=== PATIENT | male | born 1940 | race Caucasian/White ===

== ENCOUNTER → 2017-01-01 | Outpatient (CLI) | payer MEDICARE ==
[2017-01-01 08:59] LABS: MEAN CORPUSCULAR HEMOGLOBIN 30.8 pg (27.0-33.0); MEAN CORPUSCULAR HGB CONC 33.2 g/dl (32.0-36.5); MEAN CORPUSCULAR VOLUME 92.8 fl (80.0-96.0); RED CELL DISTRIBUTION WIDTH 13.6 % (11.5-14.5); WHITE BLOOD COUNT 6.9 K/mm3 (4.0-10.0)
[2017-01-01 09:25] LABS: ALBUMIN 3.4 GM/DL (3.2-5.2); ALBUMIN/GLOBULIN RATIO 1.26 (1.00-1.93); ALKALINE PHOSPHATASE 63 U/L (45-117); ALT/SGPT 23 U/L (12-78); ANION GAP 7 MEQ/L (8-16); AST/SGOT 13 U/L (15-37); BILIRUBIN,TOTAL 1.1 MG/DL (0.2-1.0); BLOOD UREA NITROGEN 16 MG/DL (7-18); CALCIUM LEVEL 8.7 MG/DL (8.8-10.2); CARBON DIOXIDE LEVEL 30 MEQ/L (21-32); CHLORIDE LEVEL 103 MEQ/L (98-107); CREATININE FOR GFR 1.06 MG/DL (0.70-1.30); GLOMERULAR FILTRATION RATE > 60.0 (>42); GLUCOSE, FASTING 233 MG/DL (83-110); POTASSIUM SERUM 4.3 MEQ/L (3.5-5.1); SODIUM LEVEL 140 MEQ/L (136-145); TOTAL PROTEIN 6.1 GM/DL (6.4-8.2)
== END ==
LOC: M LAB 07:53
PROVIDERS: ATTEND Internal Medicine Rheumatology
DX: M35.3 Polymyalgia rheumatica (principal); Z51.81 Encounter for therapeutic drug level monitoring; Z79.899 Other long term (current) drug therapy; I25.10 Atherosclerotic heart disease of native coronary artery without angina pectoris; E78.2 Mixed hyperlipidemia; I10 Essential (primary) hypertension

== ENCOUNTER → 2017-01-01 | Outpatient (CLI) | payer MEDICARE | LOC: M LAB 07:47 | PROVIDERS: ATTEND Nurse Practitioner Adult Health | DX: I25.10 Atherosclerotic heart disease of native coronary artery without angina pectoris (principal); E78.2 Mixed hyperlipidemia; I10 Essential (primary) hypertension ==

== ENCOUNTER 2019-06-15 20:45 | Emergency (ER) | payer MEDICARE ==
[~2019-06-15] VITALS: Ht 177.8 cm; Wt 89.1 kg
[2019-06-15] MEDS ORDERED: AMBI10TA PO (21:00)
[2019-06-15] MEDS ORDERED: LANTINJ4 SC (21:04)
[2019-06-15] MEDS ORDERED: ANOR1AER PO (21:04)
[2019-06-15] MEDS ORDERED: ASPI81TA85 PO (21:04)
[2019-06-15] MEDS ORDERED: AMLO10TA5 PO (21:04)
[2019-06-15] MEDS ORDERED: PANT40TA3 PO (21:04)
[2019-06-15] MEDS ORDERED: LEXA1TAB2 PO (21:04)
[2019-06-15] MEDS ORDERED: METF-791 PO (21:04)
[2019-06-15] MEDS ORDERED: AMLO5TAB6 PO (21:04)
[2019-06-15] MEDS ORDERED: PLAV1TAB2 PO (21:04)
[2019-06-15] MEDS ORDERED: ALLO10TA PO (21:08)
[2019-06-15] MEDS ORDERED: RANI15TA PO (21:08)
[2019-06-15] MEDS ORDERED: CIAL5TAB PO (21:08)
[2019-06-15] MEDS ORDERED: ATOR40TA75 PO (21:08)
[2019-06-15] MEDS ORDERED: HUMA100I5 SC (21:08)
[2019-06-15 21:27] LABS: BASO # 0.1 10^3/uL (0.0-0.2); BASO % 0.7 % (0.0-1.0); EOS # 0.4 10^3/uL (0.0-0.5); EOS % 5.9 % (0.0-3.0); HEMATOCRIT 37.1 % (42.0-52.0); HEMOGLOBIN 12.4 g/dl (13.5-17.5); LYMPH # 1.7 10^3/uL (1.5-5.0); LYMPH % 22.3 % (24.0-44.0); MEAN CORPUSCULAR HEMOGLOBIN 30.8 pg (27.0-33.0); MEAN CORPUSCULAR HGB CONC 33.4 g/dl (32.0-36.5); MEAN CORPUSCULAR VOLUME 92.3 fl (80.0-96.0); MONO # 0.7 10^3/uL (0.0-0.8); MONO % 9.1 % (0.0-5.0); NEUTROPHILS # 4.6 10^3/uL (1.5-8.5); NEUTROPHILS % 61.5 % (36.0-66.0); PLATELET COUNT, AUTOMATED 199 10^3/uL (150-450); RED BLOOD COUNT 4.02 10^6/uL (4.30-6.10); WHITE BLOOD COUNT 7.5 10^3/uL (4.0-10.0)
[2019-06-15 21:39] LABS: PROTHROMBIN TIME 12.9 SECONDS (11.8-14.0)
[2019-06-15 21:51] LABS: ALBUMIN 3.6 GM/DL (3.2-5.2); BILIRUBIN,DIRECT 0.2 MG/DL (0.0-0.2); CK-MB VALUE MASS 5.6 NG/ML (<3.6); MB/CK RELATIVE INDEX 2.18 (< OR =4); TOTAL PROTEIN 6.5 GM/DL (6.4-8.2); TROPONIN I 0.07 NG/ML (< 0.10)
[2019-06-15] MEDS ORDERED: ASPIRIN 81 MG CHEW TABLET PO ONE (22:15)
[2019-06-16 01:07] LABS: CK-MB VALUE MASS 7.6 NG/ML (<3.6); MB/CK RELATIVE INDEX 2.86 (< OR =4); TROPONIN I 0.92 NG/ML (< 0.10)
[2019-06-16] MEDS ORDERED: HEPARIN DRIP 25,000 UNITS in IV 1 EA IV SCH (01:32)
[2019-06-16] MEDS ORDERED: HEPARIN SOD (PORCINE) 5000 UNITS/ML VIAL IV ONE (01:45)
[2019-06-16 01:52] LABS: PARTIAL THROMBOPLASTIN TIME 24.5 SECONDS (25.0-38.4)
[2019-06-16 02:36] VITALS: BP 152/106
--- NOTE | 2019-06-16 07:53 | REP ---
Clinical: Chest pain . Comparison: 01/10/2013 . Findings: The mediastinum and cardiac silhouette are stable and within normal limits for portable technique. The lung mauricio demonstrate chronic-appearing changes without acute consolidation, effusion, or pneumothorax. Skeletal structures are intact. Impression: No focal consolidation or effusion. Electronically Signed by Ross Huang MD 06/16/2019 07:45 A
--- NOTE | 2019-06-16 22:33 | ECGEPIP ---
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
--- NOTE | 2019-06-16 22:34 | ECGEPIP ---
[facility] - ED Test Date: 2019-06-16 Pat Name: KIRA ZHANG Department: Room: - Gender: Male Services Manager: missy : 1940 Requested By: MARIE Pham Order Number: [id number] Reading MD: Ewa Le Measurements Intervals Hardy Rate: 59 P: 39 CT: 154 QRS: -11 QRSD: 114 T: 40 QT: 433 QTc: 431 Interpretive Statements SINUS BRADYCARDIA POSSIBLE LEFT ATRIAL ENLARGEMENT INFERIOR MYOCARDIAL INFARCTION, OF INDETERMINATE AGE WITH POSTERIOR EXTENSION NSTTW abnormalities SIMILAR 06/15/19 21:06 Electronically Signed on 06-16-2019 22:34:47 EDT by Ewa Le
== END 2019-06-16 02:39 | disposition short-term general hospital (02) ==
LOC: M ED 20:45
DX: I20.9 Angina pectoris, unspecified (principal); I25.2 Old myocardial infarction; J44.9 Chronic obstructive pulmonary disease, unspecified; Z95.5 Presence of coronary angioplasty implant and graft; E11.9 Type 2 diabetes mellitus without complications; Z79.4 Long term (current) use of insulin; Z79.899 Other long term (current) drug therapy